=== PATIENT | male | born 1995 | race Two or more races ===

== ENCOUNTER → 2016-07-05 | Outpatient (CLI) | payer OTHER ==
--- NOTE | 2016-07-05 11:59 | REP ---
RIGHT ANKLE, FOUR VIEWS: Four views of the right ankle are performed. There is no acute fracture or dislocation. Ankle mortise is anatomic. There is lateral soft tissue swelling. IMPRESSION: Soft tissue swelling without fracture or dislocation. Signed by Brent Johnson MD 07/05/2016 07:47 P
--- NOTE | 2016-07-05 12:12 | REP ---
RIGHT FOOT, FOUR VIEWS: There is no evidence of an acute fracture, dislocation or intrinsic bone disease. IMPRESSION: No fracture or dislocation. Signed by Brent Johnson MD 07/05/2016 07:47 P
== END ==
LOC: M LRY 10:57
PROVIDERS: ATTEND Physician Assistant
DX: M25.571 Pain in right ankle and joints of right foot (principal)